=== PATIENT | male | born 1975 | race American Indian/Alaskan Native ===

== ENCOUNTER 2017-08-01 20:35 | Inpatient (IN) | payer MEDICARE, MEDICAID ==
[2017-08-01 20:39] VITALS: O2SAT 98
--- NOTE | 2017-08-01 20:44 | ED PDOC ---
Psych Transfer Clearance - Clearance Statement Clearance Statement: Reviewed vital signs. Lab results and transfer papers reviewed and accepted for transfer by Dr Richardson on previous shift. Patient clinically stable for psychiatric admission.
[2017-08-01] MEDS ORDERED: Alum-Mag Hydrox-Simethicone Susp (30 mL) PO PRN (21:21)
[2017-08-01] MEDS ORDERED: Magnesium Hydroxide Susp 30 ml UD PO PRN (21:21)
[2017-08-01] MEDS ORDERED: DiphenhydrAMINE 50 mg/ml Inj IM PRN (21:21)
--- NOTE | 2017-08-01 21:36 | PCM.BM ---
<Genna Kelley - Last Filed: 08/01/17 21:34> Treatment Plan Problems - Problems identified on initial assessmt Hopelessness/helplessness Date Initiated: 08/01/17 Time Initiated: 21:35 Assessment reference: NA Status: Active Treatment assets and liabiliti Patient Assests: ADL independent, physically healthy, negotiates basic needs Patient Liabilities: financial problems, poor support system <Tiana Marin - Last Filed: 08/05/17 12:40> Treatment Plan Problems - Problems identified on initial assessmt Hopelessness/helplessness Date Initiated: 08/01/17 Time Initiated: 21:35 Assessment reference: NA Status: Active Auditory Hallucinations Date Initiated: 08/01/17 Time Initiated: 22:48 Assessment reference: NA Status: Active - Diagnosis (1) Depression Status: Acute Interventions: psychotherapy, pharmacotherapy 08/05/17 12:40 Family Contact - Outside Agency Agency 1 Care involvment: Following patient during stay, Information-sharing, Other Agency contact name: Mitch STANLEY Agency contact number: 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
--- NOTE | 2017-08-01 22:48 | PCM.BM ---
<Genna Kelley - Last Filed: 08/01/17 22:47> Treatment Plan Problems - Problems identified on initial assessmt Hopelessness/helplessness Date Initiated: 08/01/17 Time Initiated: 21:35 Assessment reference: NA Status: Active Auditory Hallucinations Date Initiated: 08/01/17 Time Initiated: 22:48 Assessment reference: NA Status: Active Treatment assets and liabiliti Patient Assests: ADL independent, physically healthy, negotiates basic needs Patient Liabilities: financial problems, poor support system - Milieu Protocol Maintain good personal hygiene: daily Encourage regular showers, daily Remind patient to perform daily oral care, every shift Assist patient to perform ADL's Maintain personal safety: every shift Educate patient to report safety concerns to staff, every shift Monitor environment for contraband/sharps Medication safety: Monitor for expected outcome, potential side effects: every shift, Assess barriers to learning: every shift, Assess readiness for medication education: every shift <Ye Harperiana - Last Filed: 08/04/17 14:26> Treatment assets and liabiliti Patient Assests: cooperative, resourceful, self-reliant, ADL independent, physically healthy, negotiates basic needs, financial stabiity (some financial ) , cognitively intact Patient Liabilities: live alone, poor support system, relationship conflicts Family Contact Family involvement: Famliy/SO not involved Family contact: Patient declines to allow family contact at present - Outside Agency Agency 1 Care involvment: Following patient during stay, Information-sharing, Other Agency contact name: Mitch STANLEY Agency contact number: pt. 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 Patient to be encouraged to attend groups regularly to promote self-awareness,maintained sobriety, and improve insight, compliance, coping skills and self-esteem. Patient to be provided with referral for appropriate level of aftercare to reduce risk of future hospitalizations and ensure safety in the community. Discharge/Continuing Care - Education Needs Education Needs: Patient Medication, Patient Diagnosis/Disease Process, Patient Coping Skills, Patient Community resources, Patient Aftercare Safety Plan - Discharge Discharge Criteria: Tolerates medication w/o severe side effects, Free of Suicidal thoughts, Free of paranoid thoughts, Normal sleep pattern, Ability to care for self, Reduction of target symptoms Discharge to:: Home, Other (OPS vs. PHP (pending consent)) - Treatment Team Participation Patient/Family/SO Statement: 08/04/17 14:19 Patient attended tx team this morning to discuss progress on 3P and tx goals. Pt. reported some improvement in sxs of depression since admission but declined to elaborate. Pt. reported last experiencing AH on 08/03 (derogatory/negative/ threatening ; not command in nature). Pt. denied SI/HI when asked but was hesitant. Pt. continues to have difficulties identifying protective factors. Pt. presents as depressed, internally preoccupied and with some though blocking. Pt. continues to refuse medications despite staff encouragement, stating "It won't work for me. I don't need it." Pt. minimally receptive to feedback and psychoeducation. Pt. visible on 3NP but remains socially withdrawn. Pt. has been screened by [facility] and not accepted. Possible rescreening secondary to extensive hx of suicide attempts, noncompliance, and lack of social supports/community linkages. 08/04/17 14:25 Discussed with Family/SO: No Was Patient/Family/SO present at Treatment Team Meeting: Yes
--- NOTE | 2017-08-02 11:29 | CP.PCM.CON ---
History of Present Illness - History of Present Illness History of Present Illness: 41 yo male with history of schizoaffective DO admitted to psyche unit because of worsening depression. Review of Systems - Review of Systems All systems: reviewed and no additional remarkable complaints except (aside from those mentioned above, 12 point system review were negative by me) Past Patient History - Tetanus Immunizations Tetanus Immunization: Unknown - Past Medical History & Family History Past Medical History?: Yes - Past Social History Smoking Status: Heavy Smoker > 10 Cigarettes Daily Alcohol: None Drugs: Denies - CARDIAC Other/Comment: pericardial effusion, nicked ventricle during a suicide attempt in 2010 and had an open heart surgery to close it. - PULMONARY Hx Respiratory Disorders: No - NEUROLOGICAL Hx Neurological Disorder: No - HEENT Hx HEENT Problems: No - RENAL Hx Chronic Kidney Disease: No - ENDOCRINE/METABOLIC Hx Endocrine Disorders: No - HEMATOLOGICAL/ONCOLOGICAL Hx Blood Disorders: No - INTEGUMENTARY Hx Dermatological Problems: No - MUSCULOSKELETAL/RHEUMATOLOGICAL Hx Arthritis: Yes (right hip) Hx Falls: No - GASTROINTESTINAL Hx Gastrointestinal Disorders: No - GENITOURINARY/GYNECOLOGICAL Hx Genitourinary Disorders: No - PSYCHIATRIC Hx Substance Use: No - SURGICAL HISTORY Hx Surgeries: Yes Hx Open Heart Surgery: Yes Other/Comment: "Ventricle repair" - ANESTHESIA Hx Anesthesia: Yes Hx Anesthesia Reactions: No Meds Allergies/Adverse Reactions: Allergies Allergy/AdvReac Type Severity Reaction Status Date / Time No Known Allergies Allergy Verified 08/01/17 20:37 - Medications Medications: Current Medications Acetaminophen (Tylenol 325mg Tab) 650 mg PO Q4 PRN PRN Reason: Pain, moderate (4-7) Al Hydrox/Mg Hydrox/Simethicone (Maalox Plus 30 Ml) 30 ml PO Q4 PRN PRN Reason: Dyspepsia Diphenhydramine HCl (Benadryl) 50 mg IM Q6 PRN PRN Reason: Extrapyramidal S/S Unable PO Diphenhydramine HCl (Benadryl) 50 mg PO Q6 PRN PRN Reason: Extrapyramidal Symptoms Diphenhydramine HCl (Benadryl) 50 mg PO HS PRN PRN Reason: Sleep Gabapentin (Neurontin) 300 mg PO BID ENRICO Last Admin: 08/02/17 08:37 Dose: Not Given Haloperidol (Haldol) 5 mg PO Q4 PRN PRN Reason: Agitation Haloperidol Lactate (Haldol) 5 mg IM Q4 PRN PRN Reason: Agitation, Unable to Take PO Lorazepam (Ativan) 1 mg PO Q8 PRN PRN Reason: Anxiety/Agitation Magnesium Hydroxide (Milk Of Magnesia) 30 ml PO HS PRN PRN Reason: Constipation Physical Exam - Constitutional Appears: No Acute Distress - Head Exam Head Exam: ATRAUMATIC - Eye Exam Eye Exam: absent: Scleral icterus - ENT Exam ENT Exam: Mucous Membranes Moist - Neck Exam Neck exam: Negative for: Meningismus - Respiratory Exam Respiratory Exam: absent: Rales, Rhonchi, Wheezes, Respiratory Distress - Cardiovascular Exam Cardiovascular Exam: REGULAR RHYTHM, +S1, +S2 - GI/Abdominal Exam GI & Abdominal Exam: Soft. absent: Tenderness - Rectal Exam Rectal Exam: Deferred - Extremities Exam Extremities exam: Negative for: calf tenderness, pedal edema - Back Exam Back exam: NORMAL INSPECTION - Neurological Exam Neurological exam: Alert, Oriented x3 - Psychiatric Exam Psychiatric exam: Normal Affect Results - Vital Signs Recent Vital Signs: Last Vital Signs Temp 97.3 F L 08/02/17 09:00 Pulse 85 08/02/17 09:00 Resp 18 08/02/17 09:00 BP 122/84 08/02/17 09:00 Pulse Ox 98 08/01/17 20:37 Assessment & Plan (1) Depression Status: Acute Comment: psyche is managing
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
--- NOTE | 2017-08-06 14:27 | PCM.PYCHPN ---
Psychiatric Progress Note - Psychiatric Progress Note Patient seen today, length of contact: Patient evaluated, case discussed w/ team , chart reviewed Patient Chief Complaint: "I'm fine." Problems Identified/Issues Discussed: Patient continues to refuse medications. He does not believe he needs them. He continues to seem internally preoccupied and responding to internal stimuli, but is not acutely aggressive or agitated towards others. He denies current AH/ VH. He has poverty of speech and seems disinterested in interacting with others. Medication Change: No Medical Record Reviewed: Yes Consults ordered or reviewed: Medicine consult Mental Status Examination - Cognitive Function Orientation: Person, Place, Situation Memory: Intact Attention: WNL Concentration: Poor Association: WNL Fund of Knowledge: Poor - Mood Mood: Neutral - Affect Affect: Blunted, Depressed - Speech Speech: Soft - Formal Thought Process Formal Thought Process: Paranoia, Circumstantial, Other (Internally preoccupied) Psychotic Thoughts and Behaviors: +Internally preoccupied, likely paranoid - Suicidal Ideation Suicidal Ideation: No - Homicidal Ideation Homicidal Ideation: No Goal/Treatment Plan - Goal/Treatment Plan Need for Continued Stay: Remain at risks for inpatient hospitalization, Severe depression anxiety, Discharge may exacerbated symptoms Progress Toward Problem(s) and Goals/Treatment Plan: Schizophrenia; patient needs continued hospitalization for monitoring and safety -Continue to offer patient treatment with Seroquel; he is not agreeable to taking any psychiatric medications at this time -Individual and group therapy -Psychoeducation -Disposition planning Estimated Date of D/C: 08/10/17
--- NOTE | 2017-08-07 08:11 | PCM.PYCHPN ---
Psychiatric Progress Note - Psychiatric Progress Note Patient seen today, length of contact: Patient evaluated, case discussed w/ team , chart reviewed Patient Chief Complaint: "I'm fine." Problems Identified/Issues Discussed: Patient continues to refuse medications. He continues to seem internally preoccupied, but is not acutely aggressive or agitated towards others. He denies current AH/VH, but it is unclear if he is responding to internal stimuli. He has poverty of speech and seems disinterested in interacting with others. He submitted a 48 hour letter requesting discharge and [place] [facility] meets criteria for [place]. He denies SI/HI. Medication Change: No Medical Record Reviewed: Yes Consults ordered or reviewed: Medicine consult Mental Status Examination - Cognitive Function Orientation: Person, Place, Situation Memory: Intact Attention: WNL Concentration: Poor Association: WNL Fund of Knowledge: Poor Decription of patient's judgement and insights: Poor I/J - Mood Mood: Neutral - Affect Affect: Blunted, Depressed - Speech Speech: Soft - Formal Thought Process Formal Thought Process: Circumstantial, Other (Internally preoccupied, unclear if patient has active AH and/or delusions) Psychotic Thoughts and Behaviors: +Internally preoccupied, likely psychotic - Suicidal Ideation Suicidal Ideation: No - Homicidal Ideation Homicidal Ideation: No Goal/Treatment Plan - Goal/Treatment Plan Need for Continued Stay: Remain at risks for inpatient hospitalization, Severe depression anxiety, Discharge may exacerbated symptoms Progress Toward Problem(s) and Goals/Treatment Plan: Schizophrenia; patient needs continued hospitalization for monitoring and safety ; will have patient screened for involuntary psychiatric admission [place] [facility] -Continue to offer patient treatment with [facility]; he is not agreeable to taking any psychiatric medications at this time -Individual and group therapy -Psychoeducation -Disposition planning Estimated Date of D/C: 08/08/17
[2017-08-07 08:43] VITALS: TEMP 97.7
[2017-08-07 16:48] VITALS: PULSE 66
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
[2017-08-08 09:08] VITALS: BP 143/91; RESP 18
== END 2017-08-08 12:00 | disposition left against medical advice (07) | DRG 885 ==
LOC: H.ER 20:35 → H.ERHOLD 20:42 → H.PSYCH 20:59
PROVIDERS: ADMIT Psychiatry & Neurology Psychiatry; ATTEND Psychiatry & Neurology Psychiatry
PROC: GZHZZZZ Group Psychotherapy (ICD-10-PCS; principal; 2017-08-01)
PROC: GZ58ZZZ Individual Psychotherapy, Cognitive-Behavioral (ICD-10-PCS; 2017-08-01)
PROC: GZ56ZZZ Individual Psychotherapy, Supportive (ICD-10-PCS; 2017-08-01)
DX: F20.0 Paranoid schizophrenia (principal); R45.851 Suicidal ideations; Z91.14 Patient's other noncompliance with medication regimen; Z91.19 Patient's noncompliance with other medical treatment and regimen; F17.210 Nicotine dependence, cigarettes, uncomplicated